=== PATIENT | male | born 1950 ===

== ENCOUNTER 2020-01-18 20:28 | Inpatient (IN) | payer OTHER ==
[~2020-01-18] VITALS: Ht 170.2 cm; Wt 72.6 kg
[2020-01-18] MEDS ORDERED: KEPPRA500 MG (20:57)
[2020-01-18] MEDS ORDERED: VITAMINA D (20:57)
[2020-01-18] MEDS ORDERED: METFORMIN (20:58)
[2020-01-18] MEDS ORDERED: LOSARTAN (20:58)
[2020-01-23] MEDS ORDERED: LOSARTAN POTASS50 MG (11:48)
[2020-01-23] MEDS ORDERED: GLUMETZA500 MG (11:49)
[2020-01-23] MEDS ORDERED: VITAMIN D310 MC5 (11:50)
[2020-01-28] MEDS ORDERED: SIMETHICONE125 M1 PO (13:36)
[2020-01-28] MEDS ORDERED: AUGMENTIN XR 11 EACH PO (13:37)
[2020-01-28] MEDS ORDERED: ULTRACET PO (13:37)
[2020-01-28] MEDS ORDERED: PROTONIX40 MG PO (13:38)
== END 2020-01-28 15:27 | disposition home or self-care (01) | DRG 417 ==
LOC: ER 20:28 → SEC-K 23:53 → SURG 23:53
PROVIDERS: Surgery; ADMIT Internal Medicine
PROC: BF37ZZZ Magnetic Resonance Imaging (MRI) of Pancreas (ICD-10-PCS; 2020-01-18)
PROC: BW40ZZZ Ultrasonography of Abdomen (ICD-10-PCS; 2020-01-18)
PROC: 4A033R1 Measurement of Arterial Saturation, Peripheral, Percutaneous Approach (ICD-10-PCS; 2020-01-18)
PROC: 0FT44ZZ Resection of Gallbladder, Percutaneous Endoscopic Approach (ICD-10-PCS; principal; 2020-01-24 10:15)
DX: K80.11 Calculus of gallbladder with chronic cholecystitis with obstruction (principal); K85.10 Biliary acute pancreatitis without necrosis or infection; N17.8 Other acute kidney failure; I10 Essential (primary) hypertension; E80.6 Other disorders of bilirubin metabolism; E86.0 Dehydration; E87.8 Other disorders of electrolyte and fluid balance, not elsewhere classified; E11.65 Type 2 diabetes mellitus with hyperglycemia; Z79.4 Long term (current) use of insulin